=== PATIENT | male | born 1970 | race Caucasian/White ===

== ENCOUNTER 2025-02-03 05:44 | Emergency (ER) | payer BC, MEDICARE ==
[~2025-02-03] VITALS: Ht 175.3 cm; Wt 123.4 kg
[~2025-02-03 05:44] MED LIST: ASPI-1012 PO; ATOR10 PO; CHOL100034 PO; DOXA4TAB3 PO; HYDR25TA PO; ISOS60TA77 PO; OLME40TA18 PO
--- NOTE | 2025-02-03 05:52 | ERN ---
ED Note History of Present Illness Stated Complaint: HEADACHE Chief Complaint: Headache Time Seen by : 05:55 Dictation: This is a 54-year-old male who presented to the emergency room complaining of a headache. He stated that this has been going on for a couple of weeks but got worse and it woke him up around 3:00 a.m.. He admits to neck pain and discomfort but denied any vision changes or blurred diplopia no aura prior to the headache. Most of the pain is related to the area of occipital and neck Temperature 97 pulse 62 respirations 17 blood pressure 126/65 with a pulse oximetry of 94% on room air Chronic medical problems include kidney cancer, hypertension, hyperlipidemia, polycythemia, hernia repair x2, lap band, right pulmonary stenosis pending, VSD repair, heart septum repair, right partial kidney removal, left kidney removal, VIKY on CPAP Allergies: Coded Allergies: Penicillins (Unverified Allergy, Unknown, 12/07/24) Home Meds Active Scripts Oxycodone HCl (Oxycodone HCl) 5 Mg Tablet, 1 TAB PO [id number] PRN for pain for 5 Days, #10 TAB 0 Refills Prov:KRISTIN ALCALA MD 02/03/25 Cyclobenzaprine HCl (Cyclobenzaprine HCl) 10 Mg Tablet, 1 TAB PO TID for muscle spasms for 10 Days, #30 TAB 0 Refills Prov:KRISTIN ALCALA MD 02/03/25 Prednisone (Prednisone) 20 Mg Tablet, 1 TAB PO AD for 6 Days, #14 TAB 0 Refills TAKE 1 TAB BY MOUTH THREE TIMES PER DAY X3 DAYS, THEN TAKE 1 TAB BY MOUTH TWICE A DAY X2 DAYS, THEN TAKE 1 TAB BY MOUTH ONCE A DAY X1 DAY. Prov:KRISTIN ALCALA MD 02/03/25 Reported Medications Doxazosin Mesylate (Doxazosin Mesylate) 4 Mg Tablet, 4 MG PO HS, TAB 12/07/24 Isosorbide Mononitrate (Isosorbide Mononitrate ER) 60 Mg Tab.er.24h, 60 MG PO HS, TAB 12/07/24 Olmesartan Medoxomil (Olmesartan Medoxomil) 40 Mg Tablet, 40 MG PO DAILY, TAB 12/07/24 Atorvastatin Calcium (LIPITOR) 20 Mg Tab, 20 MG PO DAILY, TAB 12/07/24 Hydrochlorothiazide (Hydrochlorothiazide) 25 Mg Tablet, 25 MG PO DAILY, TAB 12/07/24 Aspirin (ASPIRIN) 325 Mg Tablet, 325 MG PO DAILY, TAB 12/07/24 Cholecalciferol (Vitamin D3) (Vitamin D3) 25 Mcg (1000 Unit) Tab.chew, 25 MCG PO DAILY, TAB.CHEW 12/07/24 Past Medical History Past Medical History: Cancer, High Cholesterol, Heart Disease, Hypertension Additional Past Medical Hx: KIDNEY CA Surgical History: CABG, Bariatric Surgery Surgical History Other: RT KIDNEY, PARTIAL LT KIDNEY, HERNIA, Family History: Negative RN Note Reviewed/Agreed w/PFSH: Yes Review of System Dictation Constitutional: Negative for fever,chills, and weight loss Eyes: Negative for injury, pain,redness, and discharge ENT: Negative for injury,pain or swelling Cardiovascular: Negative for chest pain, palpitations, and edema Respiratory: Negative for shortness of breath, cough, and wheezing, Abdomen/GI: Negative for abdominal pain, nausea, vomiting, diarrhea, and constipation Back: Negative for injury and pain : Negative for injury, bleeding and discharge MS/Extremity: Negative for injury and deformity Skin: Negative for rash, and discoloration Neuro: Positive for headache, denies weakness, numbness, tingling, and seizure Psych: Negative for suicide ideation, homicidal ideation, and hallucinations Initial Vital Sign VS Vital Signs Date Time Temp Pulse Resp B/P (MAP) Pulse Ox O2 Delivery O2 Flow Rate FiO2 02/03/25 05:47 97.0 62 17 126/65 94 Room Air 0 02/03/25 06:26 21 Physical Exam Dictation General: awake, alert, NAD Head/Face: Normocephalic, atraumatic Eyes: PERRL, EOMI, vision at baseline ENT: oral cavity clear, TMs clear, no signs of infection Neck: Trachea midline, supple, no nuchal rigidity Cardiovascular: RRR, normal S1/S2, No MRGs, no JVD Respiratory: CTAB, no respiratory distress, No rales or wheezes Abdomen: Soft, non-tender, non-distended, normal bowel sounds, no guarding or rebound. Skin: Warm, dry, normal turgor, no rash MS/Extremity: Pulses equal, no cyanosis, neurovascular intact, FROM Neuro: COAx4, GCS 15, strength 5/5, CN 2-12 intact, normal cerebellar exam, normal gait, Psych: Normal behavior, mood, and affect normal Extremities-trace edema without any palpable cords, Homans sign is negative Results (Laboratory/Radiology) Laboratory/Radiology Laboratory Tests Test 02/03/25 06:25 White Blood Count 9.0 K/uL (4.8-10.8) Red Blood Count 6.11 MIL/uL (4.50-6.20) Hemoglobin 15.3 g/dL (14.0-18.0) Hematocrit 47.5 % (42-54) Mean Corpuscular Volume 77.7 fL (79-99) L Mean Corpuscular Hemoglobin 25.0 pg (27.0-33.0) L Mean Corpuscular Hemoglobin Concent 32.2 g/dL (32.0-36.0) Red Cell Distribution Width 16.1 % (11.0-15.5) H Platelet Count 223 K/uL (130-400) Mean Platelet Volume 10.2 fL (7.5-10.5) Immature Granulocyte % (Auto) 0.3 % (0-1) Neutrophils (%) (Auto) 63.4 % (40.0-77.0) Lymphocytes (%) (Auto) 25.2 % (21.0-51.0) Monocytes (%) (Auto) 8.8 % (3.0-13.0) Eosinophils (%) (Auto) 1.5 % (0.0-8.0) Basophils (%) (Auto) 0.8 % (0.0-5.0) Neutrophils # (Auto) 5.7 K/uL (1.8-7.7) Lymphocytes # (Auto) 2.3 K/uL (1.0-4.8) Monocytes # (Auto) 0.8 K/uL (0.1-1.0) Eosinophils # (Auto) 0.13 K/uL (0.00-0.70) Basophils # (Auto) 0.07 K/uL (0.00-0.20) Absolute Immature Granulocyte (auto 0.03 K/uL (0-1) Nucleated Red Blood Cells 0.0 % (0.0-0.19) Red Blood Cell Morphology See comments Sodium Level 138 mmol/L (136-145) Potassium Level 4.5 mmol/L (3.5-5.1) Chloride Level 101 mmol/L (101-111) Carbon Dioxide Level 23 mmol/L (21-32) Blood Urea Nitrogen 34 mg/dL (7-18) H Creatinine 1.0 mg/dL (0.5-1.3) Glomerular Filtration Rate Calc 88 mL/min (>90) Random Glucose 130 mg/dL (70-105) H Total Calcium 9.5 mg/dL (8.5-10.1) Total Creatine Kinase 178 U/L (21-232) # Troponin I High Sensitivity 30.9 ng/L (4-75) Serum Alcohol < 3 mg/dL (0-10) Labs Reviewed?: Yes ED Course ED Course Orders Procedure Category Date Status Time Alcohol, Blood LAB 02/03/25 Complete 05:52 Cardiac Panel LAB 02/03/25 Complete 05:52 Cbc With Differential LAB 02/03/25 Complete 05:52 Basic Metabolic Panel LAB 02/03/25 Complete 05:52 Cyclobenzaprine Hcl PHA 02/03/25 Complete (Cyclobenzaprine Hcl 07:30 Methylprednisolone PHA 02/03/25 Complete Succ 40mg (Solu-Medro 07:30 Current Medications Medications (Trade) Dose Ordered Sig/Della Route PRN Reason Start Time Stop Time Status Last Admin Dose Admin Cyclobenzaprine HCl (Cyclobenzaprine HCl) 10 mg ONCE ONCE PO 02/03/25 07:30 02/03/25 07:31 DC 02/03/25 07:55 Methylprednisolone Sodium Succinate (Solu-medROL 40MG) 60 mg ONCE ONCE IVP 02/03/25 07:30 02/03/25 07:31 DC 02/03/25 07:55 Vital Signs Date Time Temp Pulse Resp B/P (MAP) Pulse Ox O2 Delivery O2 Flow Rate FiO2 02/03/25 07:59 98.8 67 17 114/63 98 Room Air* 0 02/03/25 06:26 98.8 71 18 125/66 99 Room Air* 0 02/03/25 05:47 97.0 62 17 126/65 94 Room Air 0 We will perform diagnostic labs, advanced imaging and administer medications according to the patient's complaint. Once the results are available, will review and personally interpreted the labs to rule out any acute life- threatening emergency the trach require immediate intervention and treatment. I will then re-evaluate the patient after treatment and diagnostic exams have return to determine whether the patient requires any further testing, can safely be discharged home or need further admission to hospital for additional treatment and evaluation. CBC BNP 7 are within normal limits. A trial of steroid and pain medication. Patient adamantly refused head CT stating that he can not be exposed to radiation. I had an extensive discussion with the patient and spouse and answered all their questions. They will follow up with the primary care physician Medical Decision Making MDM MDM: Differential diagnosis: Tension headache, migraine, cervical radiculopathy, cluster headache Rationale: Tests considered and ordered secondary to shared decision making include: Previous outside records reviewed: Old ER visits. Risk of complication and/or morbidity or mortality of patient management: None Medications-Per medication reconciliation Need for hospitalization: Patient does not meet criteria for hospitalization. Need for emergency major/minor surgery: No There are no social concerns with this patient. Prescription drug management Prescriptions will include symptomatic care Patient's prior external medical records from other ER visits were reviewed by me as indicated. Prior testing and results from previous visits were reviewed. Prior tests were taken into account with medical decision making and resource utilization, independent historian/historians were used to obtain complete medical history. I independently interpreted the test that were performed, results were reviewed by me and considered findings on radiology if ordered. Medical management and examination interpretation discussions were had by me with other qualified healthcare professionals as indicated for the patient's care. Problem List Problem List: (1) Cervicalgia of huxokbco-nbbnkuy-[id number] region (2) Neck pain (3) Headache DX & DISP Disposition: Discharge Departure Impression: Primary Impression: Neck pain Additional Impressions: Headache, Cervicalgia of [id number]-[id number] region Condition: Stable Scripts Oxycodone HCl (Oxycodone HCl) 5 Mg Tablet 1 TAB PO [id number] PRN for pain for 5 Days, #10 TAB 0 Refills Prov: KRISTIN ALCALA MD 02/03/25 Cyclobenzaprine HCl (Cyclobenzaprine HCl) 10 Mg Tablet 1 TAB PO TID for muscle spasms for 10 Days, #30 TAB 0 Refills Prov: KRISTIN ALCALA MD 02/03/25 Prednisone (Prednisone) 20 Mg Tablet 1 TAB PO AD for 6 Days, #14 TAB 0 Refills TAKE 1 TAB BY MOUTH THREE TIMES PER DAY X3 DAYS, THEN TAKE 1 TAB BY MOUTH TWICE A DAY X2 DAYS, THEN TAKE 1 TAB BY MOUTH ONCE A DAY X1 DAY. Prov: KRISTIN ALCALA MD 02/03/25 Additional Instructions: Patient and the caregiver have been informed of all the diagnostic tests and the imaging conducted during the today's visit to the emergency room and has verbalized understanding of the results I have personally reviewed and interpreted all diagnostic exams performed here in the ER today as well as the vital signs documented by the nursing staff. The patient is now being discharged to home and should follow up with the primary care physician or the specialist as directed by the ER staff. Follow-up with primary care provider in 1 to 2 days. Take medications as directed here in the emergency room. Okay to continue home medications unless otherwise discussed during your visit in the emergency room today. Return to your nearest emergency room if symptoms worsen or if there is no improvement. Call 911 if you need immediate assistance. Take Tylenol or Motrin [id number] as needed and if no contraindications are present. Increase oral hydration. A wound culture or urine culture was ordered here in the emergency room department please follow-up with primary care provider and advise them to get repeat ports from our facility. If you had any Ys wrap/splints that were applied here, please do not remove them until you see your primary care or specialty. Referrals: RA MANZO (PCP) KRISTIN ALCALA MD Feb 03, 2025 05:52
[2025-02-03 06:35] LABS: IMMATURE GRANULOCYTE ABSOLUTE 0.03 K/uL (0-1); NUCLEATED RED BLOOD CELLS 0.0 % (0.0-0.19); PLATELET COUNT (AUTO) 223 K/uL (130-400); RED BLOOD CELL COUNT(AUTO) 6.11 MIL/uL (4.50-6.20); RED CELL DISTRIBUTION WIDTH 16.1 % (11.0-15.5); WHITE BLOOD COUNT (AUTO) 9.0 K/uL (4.8-10.8)
[2025-02-03 06:55] LABS: ALCOHOL, BLOOD < 3 mg/dL (0-10); CREATINE KINASE, TOTAL 178 U/L (21-232); CREATININE 1.0 mg/dL (0.5-1.3); GLOMERULAR FILTR. RATE CALC 88 mL/min (>90); GLUCOSE,RANDOM 130 mg/dL (70-105); SODIUM SERUM 138 mmol/L (136-145); UREA NITROGEN, BLOOD 34 mg/dL (7-18)
[2025-02-03] MEDS ORDERED: OXYC5TAB3 PO (07:06)
[2025-02-03] MEDS ORDERED: CYCL-309 PO (07:06)
[2025-02-03] MEDS ORDERED: PRED20TA3 PO (07:06)
[2025-02-03] MEDS: CYCLOBENZAPRINE HCL 10 MG TABLET PO ONE (07:55)
[2025-02-03] MEDS: Solu-medROL 40MG VIAL IVP ONE (07:55)
[2025-02-03 07:59] VITALS: BP 114/63; PULSE 67; RESP 17; TEMP 98.7; O2SAT 98
== END 2025-02-03 08:04 | disposition home or self-care (01) ==
LOC: EDH 05:44
DX: M54.2 Cervicalgia (principal); R51.9 Headache, unspecified; E78.00 Pure hypercholesterolemia, unspecified; I11.9 Hypertensive heart disease without heart failure; Z79.82 Long term (current) use of aspirin; Z79.899 Other long term (current) drug therapy; Z88.0 Allergy status to penicillin; Z95.1 Presence of aortocoronary bypass graft; Z85.528 Personal history of other malignant neoplasm of kidney
CPT/HCPCS: 99284; 96374; 82550; 84484; 80048; 85025; 36415; J2919; 99283